=== PATIENT | male | born 1945 | race Caucasian/White ===

== ENCOUNTER 2023-08-07 11:50 | Observation (INO) | payer MEDICAID, OTHER ==
--- OUTSIDE RECORDS SUMMARY | 2023-08-07 11:54 | XMS REPORT | Continuity of Care Document ---
Author Name Unknown Address [address] [facility] [address] [place] [address] [facility] thconnect Address [address] [facility] 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 Role Phone MARY LOPES Attending Clinician Unavailable NICK CHRISTENSEN Attending Clinician UnavailDAVID Tim Attending Clinician Unavailable LAB53 Attending Clinician Unavailable LAB90 Attending Clinician Unavailable CARLOS TERRAZAS Attending Clinician Unavail able JYOTHI DAVIS Attending Clinician Unavailable MARCO SHULTZ Attending Clinician Unavailable MD CHADWICK Attending Clinician Unavailab ASAD Colmenares Attending Clinician Unavailab RACIEL Duff Attending Clinician UnaAwais Mcdonnell Attending Clinician Unavailable Awais Tanner Attending Clinician Unavailable Awais Tanner Admitting Clinician Unavailable Payers Payer Name Policy Type Policy Number Effective Date Expirati on Date Source [facility] 16 [id number] 2022 00:00:00 Problems Condition Name Condition Details Condition Category Status Onset Date Resolution Date Last Treatment Date Treating Clinician Comments Source Morbid obesity Morbid obesity Disease Active 2022-03 0-11 00:00: 00 Марина Kearns - Externa l Poison katharine dermatitis Poison katharine dermatitis Disease Active 4-05 00:00: 00 Марина Kearns - Externa l Primary hypertensi on Primary hypertensi on Disease Active 3- 00:00: 00 Марина Kearns - Externa l Mixed hyperlipid emia Mixed hyperlipid emia Disease Active 05-27 00:00: 00 Марина Cardenasold - Externa l Thrombocyt openia Thrombocyt openia Disease Active 2021-03 00:00: 00 Марина Seybold - Externa l 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 Social History Social Habit Start Date Stop Date Quantity Comments Source Gender identity Colette abilio Cardenasold - External Sexual orientation K emily Seybold - External History SDOH Alcohol Frequency Марина Caballero bold - External History SDOH Alcohol Std Drinks Марина Quinn ybold - External History SDOH Alcohol Binge Марина Kearns - External Alcohol intake 2023-04-08 00:00:00 2023-04-08 00:00:00 .14 /d Марина Kearns - External History of Social function 2022-06-12 00:00:00 2022-06-12 00:00:00 Марина Kearns - External Tobacco use and exposure 2022-02-24 00:00:00 2022-02-24 00:00:00 Smokeless tobacco non-user Марина Kearns - External Alcohol Comment 2022-02-20 00:00:00 2022-02-20 00:00:00 One beer a month. Марина Kearns - External Sex Ass[birth year] At 1945 00:00:00 1945 00:[birth year]:00 Марина Kearns - External Smoking Status Start Date Stop Date Source Never smoked tobacco Марина Kearns - External Medications Ordered Medication Name Filled Medication Name Start Date Stop Date Current Medication? Ordering Clinician Indication Dosage Frequency Signature (SIG) Comments Components Source Ascorbic Acid (Vitamin C) 500 MG oral Capsule 04-08 14:15: 47 Yes Take by mouth Марина noel Potassium Gluconate 550 MG oral Tablet 04-08 14:15: 47 Yes Take by mouth Марина noel Misc Natural Products (DAILY HERBS IMMUNE DEFENSE OR) 04-08 14:15: 47 Yes Take by mouth Марина noel Cholecalcif miriam (PA Vitamin D-3) 125 MCG (5000 UT) oral Capsule 04-08 14:15: 47 Yes Take by mouth Марина noel Benzonatate 200 MG oral Capsule 04-08 00:00: 00 Yes [id number] 200mg Q.[id number] 3D Take 1 capsule (200 mg total) by mouth 3 times daily as needed for cough. Марина noel Albuterol HFA 108 (90 Base) MCG/ACT IN AERS 04-08 00:00: 00 Yes [id number] 2{puff} Q.25D Inhale 2 puffs into the lungs every 6 hours as needed for wheezing or shortness of breath. Марина noel Pseudoeph-B romphen-DM 30-2-10 MG/5ML oral Syrup 04-08 00:00: 00 Yes [id number] 10mL QD Take 10 mL by mouth nightly as needed (cough). Марина noel Amoxicillin -Pot Clavulanate 875-125 MG oral Tablet 04-08 00:00: 00 04-16 05:59 :00 No [id number] 1{tbl} Take 1 tablet by mouth 2 times daily for 7 days. Марина noel Ascorbic Acid (Vitamin C) 500 MG oral Capsule 03-29 09:33: 02 Yes Take by mouth Марина noel Potassium Gluconate 550 MG oral Tablet 03-29 09:33: 02 Yes Take by mouth Марина noel Miswallace Natural Products (DAILY HERBS IMMUNE DEFENSE OR) 03-29 09:33: 02 Yes Take by mouth Марина Cardenasold - Externa l Cholecalcif miriam (PA Vitamin D-3) 125 MCG (5000 UT) oral Capsule 03-29 09:33: 02 Yes Take by mouth Марина Cardenasold - Externa l Ascorbic Acid (Vitamin C) 500 MG oral Capsule 03-18 13:44: 10 Yes Take by mouth Марина Kearns - Externa l Potassium Gluconate 550 MG oral Tablet 03-18 13:44: 10 Yes Take by mouth Марина Kearns - Externa l Misc Natural Products (DAILY HERBS IMMUNE DEFENSE OR) 03-18 13:44: 10 Yes Take by mouth Марина Kearns - Externa l Cholecalcif miriam (PA Vitamin D-3) 125 MCG (5000 UT) oral Capsule 03-18 13:44: 10 Yes Take by mouth Марина Kearns - Externa bert APPLE CIDER VINEGAR OR 03-18 13:39: 40 Yes Take by mouth. Марина Kaerns - Externa bert Ascorbic Acid (Vitamin C) 500 MG oral Capsule 2022-03 13:22: 11 Yes Take by mouth Марина Kearns - Externa bert Potassium Gluconate 550 MG oral Tablet 2022-03 13:22: 11 Yes Take by mouth Марина Kearns - Externa l Misc Natural Products (DAILY HERBS IMMUNE DEFENSE OR) 2022-03 13:22: 11 Yes Take by mouth Марина Kearns - Externa l Cholecalcif miriam (PA Vitamin D-3) 125 MCG (5000 UT) oral Capsule 2022-03 13:22: 11 Yes Take by mouth Марина Cardenasold - Externa l Triamcinolo ne Acetonide (KENALOG) 40 mg/mL 06-10 16:30: 00 06-10 16:30 :00 No [id number] 40mg Марина Cardenasold - Externa l Ascorbic Acid (Vitamin C) 500 MG oral Capsule 06-10 11:04: 32 Yes Take by mouth Марина Cardenasold - Externa l Potassium Gluconate 550 MG oral Tablet 06-10 11:04: 32 Yes Take by mouth Марина noel Mis Natural Products (DAILY HERBS IMMUNE DEFENSE OR) 06-10 11:04: 32 Yes Take by mouth Марина noel Cholecalcif miriam (PA Vitamin D-3) 125 MCG (5000 UT) oral Capsule 06-10 11:04: 32 Yes Take by mouth Марина noel predniSONE (DELTASONE) 10 MG oral tablet 06-10 00:00: 00 Yes [id number] One pill twice daily for 7 days then one pill daily for 7 days Марина noel Poison Katharine Treatments (Zanfel) apply externally [facility] 06-10 00:00: 00 Yes [id number] Apply 1 applicatio n. topically daily Марина noel Cetirizine HCl (ZyrTEC Allergy) 10 MG oral Capsule 06-10 00:00: 00 03-18 00:00 :00 No [id number] 10mg Take 1 capsule (10 mg total) by mouth daily Марина noel Famotidine (Pepcid) 20 MG oral tablet 06-10 00:00: 00 03-18 00:00 :00 No [id number] 20mg Take 1 tablet (20 mg total) by mouth 2 times daily Марина noel Ascorbic Acid (Vitamin C) 500 MG oral Capsule 05-27 08:36: 23 Yes Take by mouth Марина noel Potassium Gluconate 550 MG oral Tablet 05-27 08:36: 23 Yes Take by mouth Марина noel [facility] Natural Products (DAILY HERBS IMMUNE DEFENSE OR) 05-27 08:36: 23 Yes Take by mouth Марина noel Cholecalcif miriam (PA Vitamin D-3) 125 MCG (5000 UT) oral Capsule 05-27 08:36: 23 Yes Take by mouth Марина noel Metformin HCl 500 MG oral Tablet 05-12 00:00: 00 12-16 00:00 :00 No [id number] TAKE 1 TABLET BY MOUTH DAILY WITH BREAKFAST Марина noel Ascorbic Acid (Vitamin C) 500 MG oral Capsule 04-10 09:15: 48 Yes Take by mouth Марина Godoya bert Potassium Gluconate 550 MG oral Tablet 04-10 09:15: 48 Yes Take by mouth Марина Godoya bert Misc Natural Products (DAILY HERBS IMMUNE DEFENSE OR) 04-10 09:15: 48 Yes Take by mouth Марина Godoya bert Cholecalcif miriam (PA Vitamin D-3) 125 MCG (5000 UT) oral Capsule 04-10 09:15: 48 Yes Take by mouth Марина noel Ascorbic Acid (Vitamin C) 500 MG oral Capsule 04-08 15:15: 20 Yes Take by mouth Марина noel Potassium Gluconate 550 MG oral Tablet 04-08 15:15: 20 Yes Take by mouth Марина noel Misc Natural Products (DAILY HERBS IMMUNE DEFENSE OR) 04-08 15:15: 20 Yes Take by mouth Марина noel Cholecalcif miriam (PA Vitamin D-3) 125 MCG (5000 UT) oral Capsule 04-08 15:15: 20 Yes Take by mouth Марниа noel Sod Picosulfate -Mag Ox-Cit Acd (Clenpiq) 10-3.5-12 MG-GM -GM/160ML oral Solution 04-08 00:00: 00 Yes [id number] Instructio ns provided to patient. Follow instructio ns provided by provider. Марина noel hydroCHLORO thiazide 12.5 MG oral Capsule -13 00:00: 00 03-18 00:00 :00 No [id number] 12.5mg Take 1 capsule (12.5 mg total) by mouth daily Марина noel Atorvastati n Calcium 20 MG oral Tablet -08 00:00: 00 12-16 00:00 :00 No [id number] 20mg Take 1 tablet (20 mg total) by mouth daily Марина Kearns - Externa bert Ascorbic Acid (Vitamin C) 500 MG oral Capsule 03-12 13:36: 34 Yes Take by mouth Марина Kearns - Externa l Potassium Gluconate 550 MG oral Tablet 03-12 13:36: 34 Yes Take by mouth Марина Kearns - Externa l Misc Natural Products (DAILY HERBS IMMUNE DEFENSE OR) 03-12 13:36: 34 Yes Take by mouth Марина Kearns - Externa l Cholecalcif miriam (PA Vitamin D-3) 125 MCG (5000 UT) oral Capsule 03-12 13:36: 34 Yes Take by mouth Марина Quinnleonidaslarry - Externa bert Ascorbic Acid (Vitamin C) 500 MG oral Capsule 2021-03 10:10: 50 Yes Take by mouth Марина Kearns - Externa l Potassium Gluconate 550 MG oral Tablet 2021-03 10:10: 50 Yes Take by mouth Марина Quinnleonidaslarry - Externa bert Misc Natural Products (DAILY HERBS IMMUNE DEFENSE OR) 2021-03 10:10: 50 Yes Take by mouth Марина Quinnleonidaslarry - Externa bert Cholecalcif miriam (PA Vitamin D-3) 125 MCG (5000 UT) oral Capsule 2021-03 10:10: 50 Yes Take by mouth Марина Kearns - Externa bert Ascorbic Acid (Vitamin C) 500 MG oral Capsule 2021-03 10:17: 12 Yes Take by mouth Марина Kearns - Externa bert Potassium Gluconate 550 MG oral Tablet 2021-03 10:17: 12 Yes Take by mouth Марина Kearns - Externa bert Misc Natural Products (DAILY HERBS IMMUNE DEFENSE OR) 2021-03 10:17: 12 Yes Take by mouth Марина Quinnleonidaslarry - Externa l Cholecalcif miriam (PA Vitamin D-3) 125 MCG (5000 UT) oral Capsule 2021-03 10:17: 12 Yes Take by mouth Марина Quinnleonidaslarry - Externa l hydroCHLORO thiazide 12.5 MG oral Capsule 2021-03 00:00: 00 Yes [id number] 12.5mg Take 1 capsule (12.5 mg total) by mouth daily Марина noel Metformin HCl 500 MG oral Tablet 2021-03 00:00: 00 Yes [id number] 500mg Take 1 tablet (500 mg total) by mouth daily (with breakfast) Марина noel Atorvastati n Calcium 20 MG oral Tablet 2021-03 00:00: 00 Yes [id number] 20mg Take 1 tablet (20 mg total) by mouth daily Марина noel Potassium Gluconate 550 MG oral Tablet 2021-03 10:34: 17 Yes Take by mouth Марина noel Misc Natural Products (DAILY HERBS IMMUNE DEFENSE OR) 2021-03 10:34: 17 Yes Take by mouth Марина noel Cholecalcif miriam (PA Vitamin D-3) 125 MCG (5000 UT) oral Capsule 2021-03 10:34: 17 Yes Take by mouth Марина noel Ascorbic Acid (Vitamin C) 500 MG oral Capsule 2021-03 10:34: 16 Yes Take by mouth Марина noel Immunizations Ordered Immunization Name Filled Immunization Name Date Status Comments Source Influenza Virus Vaccine, Quadrivalent, High Dose, Age 65 And Up 2022-02-06 00:00:00 Completed Марина Kearns - External Influenza Virus Vaccine, Quadrivalent, High Dose, Age 65 And Up 2022-02-06 00:00:00 Completed Марина Frazier Influenza Virus Vaccine, Quadrivalent, High Dose, Age 65 And Up 2022-02-06 00:00:00 Completed Марина Kearns - External Influenza Virus Vaccine, Quadrivalent, High Dose, Age 65 And Up 2022-02-06 00:00:00 Completed Марина Kearns - External Influenza Virus Vaccine, Quadrivalent, High Dose, Age 65 And Up 2022-02-06 00:00:00 Completed Марина Kearns - External Influenza Virus Vaccine, Quadrivalent, High Dose, Age 65 And Up 2022-02-06 00:00:00 Completed Марина Kearns - External Influenza Virus Vaccine, Quadrivalent, High Dose, Age 65 And Up 2022-02-06 00:00:00 Completed Марина Seybold - External Influenza Virus Vaccine, Quadrivalent, High Dose, Age 65 And Up 2022-02-06 00:00:00 Completed Марина Seybold - External Influenza Virus Vaccine, Quadrivalent, High Dose, Age 65 And Up Unknown Completed Марина Massey eybold - External Influenza Virus Vaccine, Quadrivalent, High Dose, Age 65 And Up Unknown Completed Марина S eybold - External Influenza Virus Vaccine, Quadrivalent, High Dose, Age 65 And Up Unknown Completed Марина S eybold - External Influenza Virus Vaccine, Quadrivalent, High Dose, Age 65 And Up Unknown Completed Марина S eybold - External Vital Signs Vital Name Observation Time Observation Value Comments S ource Systolic blood pressure 2023-04-08 20:13:00 128 mm[Hg] Марина Seybo ld - External Diastolic blood pressure 2023-04-08 20:13:00 80 mm[Hg] Марина Seybo ld - External Heart rate 2023-04-08 20:13:00 84 /min Kelse y Seybold - External Body temperature 2023-04-08 20:13:00 36.67 Eva Марина Seybold - External Respiratory rate 2023-04-08 20:13:00 15 /min Марина Seybold - External Body weight 2023-04-08 20:13:00 111.131 kg Colette ey Seybold - External BMI 2023-04-08 20:13:00 36.18 kg/m2 Colette ey Seybold - External Systolic blood pressure 2023-03-29 15:35:00 159 mm[Hg] Марина Seybo ld - External Diastolic blood pressure 2023-03-29 15:35:00 93 mm[Hg] Марина Seybo ld - External Heart rate 2023-03-29 15:35:00 74 /min Kelse y Seybold - External Body temperature 2023-03-29 15:35:00 36.44 Eva Марина Seybold - External Respiratory rate 2023-03-29 15:35:00 16 /min Марина Seybold - External Body height 2023-03-29 15:35:00 175.3 cm Colette ey Seybold - External Body weight 2023-03-29 15:35:00 110.859 kg Colette ey Seybold - External BMI 2023-03-29 15:35:00 36.09 kg/m2 Colette ey Seybold - External Oxygen saturation in Arterial blood by Pulse oximetry 2023-03-29 15:35:00 97 /min Марина Seybo ld - External Systolic blood pressure 2023-03-18 19:39:00 136 mm[Hg] Марина Seybo ld - External Diastolic blood pressure 2023-03-18 19:39:00 80 mm[Hg] Марина Seybo ld - External Heart rate 2023-03-18 19:39:00 76 /min Kelse y Seybold - External Body temperature 2023-03-18 19:39:00 36.44 Eva Марина Seybold - External Respiratory rate 2023-03-18 19:39:00 14 /min Марина Seybold - External Body height 2023-03-18 19:39:00 175.3 cm Colette ey Seybold - External Body weight 2023-03-18 19:39:00 110.678 kg Colette ey Seybold - External BMI 2023-03-18 19:39:00 36.03 kg/m2 Colette ey Seybold - External Systolic blood pressure 2022-12-16 18:15:00 130 mm[Hg] Марина Seybo ld - External Diastolic blood pressure 2022-12-16 18:15:00 80 mm[Hg] Марина Seybo ld - External Heart rate 2022-12-16 18:15:00 76 /min Kelse y Seybold - External Body temperature 2022-12-16 18:15:00 36.06 Eva Марина Seybold - External Respiratory rate 2022-12-16 18:15:00 15 /min Марина Seybold - External Body height 2022-12-16 18:15:00 175.3 cm Colette ey Seybold - External Body weight 2022-12-16 18:15:00 109.317 kg Colette ey Seybold - External BMI 2022-12-16 18:15:00 35.59 kg/m2 Colette ey Seybold - External Systolic blood pressure 2022-06-10 16:02:00 165 mm[Hg] Марина Seybo ld - External Diastolic blood pressure 2022-06-10 16:02:00 73 mm[Hg] Марина Seybo ld - External Heart rate 2022-06-10 16:02:00 81 /min Kelse y Seybold - External Body temperature 2022-06-10 16:02:00 37 Eva Марина Seybold - External Respiratory rate 2022-06-10 16:02:00 14 /min Марина Seybold - External Body height 2022-06-10 16:02:00 175.3 cm Colette ey Seybold - External Body weight 2022-06-10 16:02:00 107.502 kg Colette ey Seybold - External BMI 2022-06-10 16:02:00 35.00 kg/m2 Colette ey Seybold - External Oxygen saturation in Arterial blood by Pulse oximetry 2022-06-10 16:02:00 96 /min Марина Seybo ld - External Systolic blood pressure 2022-05-27 13:34:00 130 mm[Hg] Марина Seybo ld - External Diastolic blood pressure 2022-05-27 13:34:00 68 mm[Hg] Марина Seybo ld - External Heart rate 2022-05-27 13:34:00 81 /min Juliose y Seybold - External Body temperature 2022-05-27 13:34:00 36.67 Eva Марина Seybold - External Respiratory rate 2022-05-27 13:34:00 15 /min Марина Seybold - External Body height 2022-05-27 13:34:00 175.3 cm Colette ey Seybold - External Body weight 2022-05-27 13:34:00 107.049 kg Colette ey Seybold - External BMI 2022-05-27 13:34:00 34.85 kg/m2 Colette ey Seybold - External Systolic blood pressure 2022-04-10 15:15:00 167 mm[Hg] Марина Seybo ld - External Diastolic blood pressure 2022-04-10 15:15:00 76 mm[Hg] Марина Seybo ld - External Heart rate 2022-04-10 15:15:00 86 /min Kelse y Seybold - External Body temperature 2022-04-10 15:15:00 36.89 Eva Марина Seybold - External Respiratory rate 2022-04-10 15:15:00 16 /min Марина Seybold - External Body height 2022-04-10 15:15:00 175.3 cm Colette ey Seybold - External Body weight 2022-04-10 15:15:00 108.41 kg Colette ey Seybold - External BMI 2022-04-10 15:15:00 35.29 kg/m2 Colette ey Seybold - External Oxygen saturation in Arterial blood by Pulse oximetry 2022-04-10 15:15:00 96 /min Марина Seybo ld - External Systolic blood pressure 2022-04-08 21:14:00 154 mm[Hg] Марина Seybo ld - External Diastolic blood pressure 2022-04-08 21:14:00 81 mm[Hg] Марина Seybo ld - External Heart rate 2022-04-08 21:14:00 94 /min Kelse y Seybold - External Body temperature 2022-04-08 21:14:00 36.67 Eva Марина Seybold - External Respiratory rate 2022-04-08 21:14:00 16 /min Марина Seybold - External Body height 2022-04-08 21:14:00 175.3 cm Colette ey Seybold - External Body weight 2022-04-08 21:14:00 110.224 kg Colette ey Seybold - External BMI 2022-04-08 21:14:00 35.88 kg/m2 Colette ey Seybold - External Systolic blood pressure 2022-03-12 19:40:00 137 mm[Hg] Марина Seybo ld - External Diastolic blood pressure 2022-03-12 19:40:00 72 mm[Hg] Марина Seybo ld - External Heart rate 2022-03-12 19:40:00 81 /min Kelse y Seybold - External BMI 2022-03-12 19:39:00 36.74 kg/m2 Colette ey Seybold - External Oxygen saturation in Arterial blood by Pulse oximetry 2022-03-12 19:39:00 96 /min Марина Seybo ld - External Body temperature 2022-03-12 19:39:00 36.72 Eva Марина Seybold - External Respiratory rate 2022-03-12 19:39:00 16 /min Марина Seybold - External Body height 2022-03-12 19:39:00 172.7 cm Colette ey Seybold - External Body weight 2022-03-12 19:39:00 109.589 kg Colette ey Seybold - External Systolic blood pressure 2022-02-20 16:09:00 154 mm[Hg] Марина Seybo ld - External Diastolic blood pressure 2022-02-20 16:09:00 74 mm[Hg] Марина Seybo ld - External Heart rate 2022-02-20 16:09:00 99 /min Kelse y Seybold - External Body temperature 2022-02-20 16:09:00 36.28 Eva Марина Seybold - External Respiratory rate 2022-02-20 16:09:00 16 /min Марина Seybold - External Body height 2022-02-20 16:09:00 172.7 cm Colette ey Seybold - External Body weight 2022-02-20 16:09:00 109.77 kg Colette ey Seybold - External BMI 2022-02-20 16:09:00 36.80 kg/m2 Colette ey Seybold - External Systolic blood pressure 2022-02-06 16:27:00 162 mm[Hg] Марина Seybo ld - External Diastolic blood pressure 2022-02-06 16:27:00 68 mm[Hg] Марина Seybo ld - External Heart rate 2022-02-06 16:27:00 89 /min Kelse y Seybold - External Body temperature 2022-02-06 16:27:00 36.78 Eva Марина Seybold - External Respiratory rate 2022-02-06 16:27:00 16 /min Марина Seybold - External Body height 2022-02-06 16:27:00 172.7 cm Colette ey Seybold - External Body weight 2022-02-06 16:27:00 110.678 kg Colette ey Seybold - External BMI 2022-02-06 16:27:00 37.10 kg/m2 Colette ey Seybold - External Height/Length Measured 2021-03-25 09:37:25 175.26 cm Weight Dosing 2021-03-25 09:37:25 97.06 kg Procedures Procedure Date / Time Performed Performing Clinicia n Source [facility] 19:03:00 Mary Lopes - External [facility] 2022-02-06 17:42:12 Mary Lopes eybold - External Encounters Start Date/Time End Date/Time Encounter Type Admission Type Attending [facility] Care Department Encounter ID Source 2023-09-16 08:30:00 2023-09-16 08:30:00 Outpatient MARY LOPES [id number] Марина miles 2023-04-12 00:00:00 2023-04-12 00:00:00 Outpatient FERMIN NICK DELEON [id number] Марина miles 2023-04-09 11:00:00 2023-04-09 11:00:00 Outpatient DAVID PAZ МАРИНА DELEON [id number] Марина miles 2023-04-08 14:00:00 2023-04-08 14:00:00 Outpatient NICK CHRISTENSEN [id number] Марина miles 2023-03-29 10:20:00 2023-03-29 10:20:00 Outpatient LAB53 МАРИНА DELEON [id number] Марина Kearns 2023-03-29 09:40:00 2023-03-29 09:40:00 Outpatient DAVID PAZ МАРИНА DELEON [id number] Марина miles 2023-03-18 14:45:00 2023-03-18 14:45:00 Outpatient LAB90 МАРИНА DELEON [id number] Марина Kearns 2023-03-18 14:00:00 2023-03-18 14:00:00 Outpatient MARY LOPES [id number] Марина Kearns 2022-12-16 14:45:00 2022-12-16 14:45:00 Outpatient LAB90 МАРИНА DELEON [id number] Марина Kearns 2022-12-16 13:30:00 2022-12-16 13:30:00 Outpatient MARY LOPES [id number] Марина Kearns 2022-12-03 00:00:00 2022-12-03 00:00:00 Outpatient CARLOS TERRAZAS [facility] [id number] [facility] 00:00:00 2022-09-14 00:00:00 Outpatient JYOTHI DAVIS МАРИНА DELEON [id number] Марина Seybold 2022-08-08 00:00:00 2022-08-08 00:00:00 Outpatient JYOTHI DAVIS [facility]А DELE[facility] [id number] [facility]22-06-10 11:15:00 2022-06-10 11:15:00 Outpatient PREJYOTHI GAMEZ МАРИНА DELEON [id number] [facility] 2022-06-05 00:00:00 2022-06-05 00:00:00 Outpatient MARCO SHULTZ [facility]ИНА DELEON [id number] [facility] 2022-06-03 11:00:00 2022-06-03 11:00:00 Outpatient MARCO SHULTZ [facility]А [facility]LE[facility] [id number] [facility] 2022-05-27 09:15:00 2022-05-27 09:15:00 Outpatient LAB90 МАРИНА DELEON [id number] Марина Seybold 2022-05-27 08:30:00 2022-05-27 08:30:00 Outpatient SANDIE MARY DELEON [id number] Марина Seybold 2022-05-22 00:00:00 2022-05-22 00:00:00 Outpatient MARY LOPES [id number] Марина Seybold 2022-05-12 00:00:00 2022-05-12 00:00:00 Outpatient MARY LOPES [id number] Марина Seybold 2022-04-28 00:00:00 2022-04-28 00:00:00 Outpatient MARY LOPES [id number] Марина Seybold 2022-04-28 00:00:00 2022-04-28 00:00:00 Outpatient MARY LOPES [id number] Марина Seybold 2022-04-10 09:20:00 2022-04-10 09:20:00 Outpatient DAVID PAZ МАРИНА DELEON [id number] Марина Seyblarry 2022-04-09 00:00:00 2022-04-09 00:00:00 Outpatient MD МАРИНА VILA [id number] Марина Seyblarry 2022-04-08 15:30:00 2022-04-08 15:30:00 Outpatient MARCO SHULTZ [id number] Марина Seybold 2022-03-20 08:30:00 2022-03-20 08:30:00 Outpatient MARY LOPES [id number] Марина Seybold 2022-03-18 08:30:00 2022-03-18 08:30:00 Outpatient МАРИНА DELEON [id number] Марина Seybold 2022-03-13 00:00:00 2022-03-13 00:00:00 Outpatient MARY LOPES [id number] Марина Seybold 2022-03-12 14:55:00 2022-03-12 14:55:00 Outpatient LAB53 МАРИНА DELEON [id number] Марина Seybold 2022-03-12 14:00:00 2022-03-12 14:00:00 Outpatient DAVID PAZ МАРИНА DELEON [id number] Марина Seybold 2022-02-27 11:00:00 2022-02-27 11:00:00 Outpatient ASAD PAL [id number] Марина Seybold 2022-02-25 00:00:00 2022-02-25 00:00:00 Outpatient MARY LOPES [id number] Марина Seybold 2022-02-24 10:15:00 2022-02-24 10:15:00 Outpatient RACIEL GRAMAJO [id number] Марина Seybold 2022-02-20 10:30:00 2022-02-20 10:30:00 Outpatient MARY LOPES [id number] Марина Seybold 2022-02-16 10:20:00 2022-02-16 10:20:00 Outpatient LAB90 МАРИНА DELEON [id number] Марина [place] 2022-02-09 00:00:00 2022-02-09 00:00:00 Outpatient MARY LOPES [id number] Марина [place] 2022-02-06 11:50:00 2022-02-06 11:50:00 Outpatient LAB90 [facility] DELE[facility] [id number] [facility]:30:00 2022-02-06 10:30:00 Outpatient MARY LOPES МАРИНА [id number] Марина [place] 2022-02-06 09:15:00 2022-02-06 09:15:00 Outpatient HARISJYOTHI GAMEZ МАРИНА [id number] Маринаjesenia [place] 2018-07-05 13:45:00 2018-07-05 18:35:00 Outpatient 3 Awais Tanner Ciro, [facility] [facility] [id number] [facility] Results Test Description Test Time Test Comments Results Result Co mments Source Марина Kearns - External Notes Date/Time Note Provider Source 2023-04-08 14:14:45 [id number]:14:45F ormatting of this note is different from the original.Chief ComplaintPatient presents withCoughSinus drainage, losing his voice, chest congested. Started [place] [id number] FsfsAP6175-75-03Y50:16:37Nurse [id number]. [id number] for patient [id number] NoteLNNARRATIVEFormatted C-CDA narrative NestorUrmila Dcyppn0032 [facility]als of [id number] [id number]:16:371.2.840.936770.1.7 2.3.15|1.2.840.364486.1.13.131.2.7.2. [id number] [facility] 2023-03-29 09:33:21 2611-09-33F52:33:21F ormatting of this note is different from the original.Chief ComplaintPatient presents withHematology Follow-upThrombocytopenia ([facility])Azra Russ [id number] JlbuYI1651-96-91Z71:11:56Nurse [id number]. [id number] for patient rcxd89544-0Pcbbr NoteLNNARRATIVEFormatted C-CDA narrative text[address][id number]:11:561.2.840.134799.1.7 2.3.15|1.2.840.270190.1.13.131.2.7.2. [id number] [facility] 2023-03-18 13:46:08 [id number]:46:08F ormatting of this note is different from the original.Chief ComplaintPatient presents withDiabetesFollow up [place] [id number] KdlbZY3317-95-69S89:48:03Nurse [id number]. [id number]|[id number] for patient qisg95820-0Sttgb NoteLNNARRATIVEFormatted C-CDA narrative textWestern [facility] Health[address] [place], [place] [id number] 1983-77-71R42:48:031.2.840.388701.1.7 2.3.15|1.2.840.785528.1.13.131.2.7.2. [id number] [facility]"
[2023-08-07 12:38] LABS: Absolute Basophils 0.1 K/uL (0-0.5); Absolute Lymphocytes (CBC) 1.3 K/uL (0.7-4.9); Absolute Monocytes 1.2 K/uL (0.1-1.3); Absolute Neutrophil 11.3 K/uL (1.8-8.0); Basophils % 0.4 % (0-1.3); Eosinophils % 0.2 % (0-4.4); Hematocrit 47.2 % (39.6-49.0); Hemoglobin 15.7 g/dL (13.6-17.9); Lymphocytes % 9.4 % (15.3-44.8); MCH 30.3 pg (27.0-35.0); MCHC 33.2 g/dL (32.0-36.0); MCV 91.3 fL (80-100); MPV 9.5 fL (7.6-11.3); Monocytes % 8.6 % (3.3-12.3); Neutrophils % 81.4 % (41.7-73.7); RBC Red Blood Cell Count 5.17 M/uL (4.33-5.43); Red Cell Distribution Width 14.7 % (12.1-15.2)
[2023-08-07 13:11] LABS: PT Prothrombin Time 12.4 SECONDS (9.5-12.5); Protime INR 1.13
[2023-08-07 13:14] LABS: Platelets 199 thou/uL (152-406)
[2023-08-07 13:23] LABS: Albumin 3.5 g/dL (3.4-5.0); Albumin/Globulin Ratio 0.9 (1.1-1.8); Anion Gap 7.1 mEq/L (5.0-15.0); Bilirubin Direct 0.2 mg/dL (0-0.2); Bilirubin Indirect, Calculated 0.7 mg/dL (0.2-0.8); Bilirubin Total 0.9 mg/dL (0.2-1.0); Magnesium 2.2 mg/dL (1.6-2.4); Potassium 4.1 mEq/L (3.5-5.1); Protein, Total 7.5 g/dL (6.4-8.2); Troponin High Sensitivity 3.7 pg/mL (<58.9)
--- NOTE | 2023-08-07 13:29 | RAD REPORT ---
EXAM DESCRIPTION: RAD - Chest Single View - 08/07/2023 1:08 pm CLINICAL HISTORY: CHEST PAIN COMPARISON: Chest Pa And Lat (2 Views) dated 05/26/2017; Chest Pa And Lat (2 Views) dated 06/14/2015 FINDINGS: Lines: None. Lungs: No evidence of edema or pneumonia. Pleural: No significant pleural effusions or pneumothorax. Cardiac: The heart size is within normal limits. Mediastinum: Within normal limits. Bones: No acute fractures. Remote right-sided rib fractures . ACDF in the cervical spine. Other: None IMPRESSION: No acute cardiopulmonary disease.
--- NOTE | 2023-08-07 14:00 | RAD REPORT ---
EXAM DESCRIPTION: CTAngio Aorta For Dissection - 08/07/2023 1:39 pm CLINICAL HISTORY: DISSECTION COMPARISON: Chest Single View dated 08/07/2023 TECHNIQUE: CTA of the chest, abdomen, and pelvis was performed with IV contrast. All CT scans are performed using dose optimization technique as appropriate and may include automated exposure control or mA/KV adjustment according to patient size. FINDINGS: Thorax: Chest Wall: No abnormal mass Lungs: 3 mm right upper lobe pulmonary nodule on image 43, series 501. Mild paraseptal emphysema. Dep endent atelectasis. Other small sub 4 mm nodules noted. Pleura: No effusions or pneumothorax. Shyla/Mediastinum: Diffusely thickened esophagus likely reflecting esophagitis. Aorta/Pulmonary Arteries: Unremarkable Heart: Normal size. Coronary calcifications. Abdomen/Pelvis: Liver: Hepatic steatosis. Several subcentimeter liver lesions are noted which are too small to charac terize. Biliary: Cholecystectomy. Stomach: No significant focal abnormality. Duodenum: No significant focal abnormality. Pancreas: No significant abnormality. Spleen: No significant abnormality. Adrenal: No suspicious lesions. Kidney/ureter: No hydronephrosis. No renal calculi. Retroperitoneum: No retroperitoneal adenopathy. Vascular: No aneurysm. Atherosclerosis. Bowel: Diverticulosis without diverticulitis .. Peritoneum: No ascites or free air. Fat containing inguinal hernias. Bladder: Grossly unremarkable. Reproductive: No adnexal masses. Bones: No acute fracture. Multilevel degenerative changes are present in the spine. ACDF in the cervi katie spine . Other: n/a IMPRESSION: No aortic aneurysm, aortic dissection, or pulmonary embolus. Diffusely thickened esophagus could be secondary to esophagitis. Small sub 4 mm pulmonary nodules. Consider 12 month follow-up chest CT.
[2023-08-07 14:21] LABS: Specific Gravity 1.022 (1.005-1.030); Sqamous Epithelial None Seen /HPF (None Seen); Urine Bacteria None Seen /HPF (<20); Urine Bilirubin NEGATIVE (Negative); Urine Blood Negative (Negative); Urine Clarity Clear (Clear); Urine Color Light-Yellow (Yellow); Urine Culture Reflex Order NOT NEEDED; Urine Glucose NEGATIVE (Negative); Urine Ketones NEGATIVE (Negative); Urine Microscopic Reflex YN ORDER UMIC; Urine Mucus Slight /HPF (None Seen); Urine Nitrite NEGATIVE (Negative); Urine Protein NEGATIVE (Negative); Urine RBC <5 /HPF (None Seen); Urine Urobilinogen Normal (Normal); Urine WBC <5 /HPF (<5); Urine pH 7.5 (5.0-7.0)
--- NOTE | 2023-08-07 14:28 | ER ---
Nurse's Notes [facility] Name: Tyrese Maddox Age: 78 yrs Sex: Male : 1945 Arrival Date: 08/07/2023 Time: 11:50 Bed 4 Private MD: Diagnosis: Chest pain, unspecified;Essential (primary) hypertension;Gastro-esophageal reflux disease with esophagitis;Abnormal findings on diagnostic imaging of other specified body structures-small subpleuralnodules Presentation: 08/06 12:03 Chief complaint: Patient states: Mid chest pain that radiates into neck and back ll1 started throughout the night. Hurts more to take a deep breathe. Coronavirus screen: Client denies travel out of the [place] in the last 14 days. At this time, the client does not indicate any symptoms associated with coronavirus-19. Ebola Screen: Patient denies travel to an Ebola-affected area in the 21 days before illness onset. Acute neurological deficit: none identified. Initial Sepsis Screen: Does the patient meet any 2 criteria? No. Patient's initial sepsis screen is negative. Does the patient have a suspected source of infection? No. Patient's initial sepsis screen is negative. Risk Assessment: Do you want to hurt yourself or someone else? Patient reports no desire to harm self or others. Onset of symptoms was August 06, 2023. 12:03 Method Of Arrival: Ambulatory ll1 12:03 Acuity: MAMI 2 ll1 Triage Assessment: 12:05 General: Appears uncomfortable, Behavior is calm, cooperative, appropriate for age. ll1 Pain: Complains of pain in mid upper chest Pain radiates to back and neck Pain currently is 5 out of 10 on a pain scale. Cardiovascular: Reports chest pain. Respiratory: Reports pain with respiration. Historical: - Allergies: 11:57 Codeine; ll1 - PMHx: 11:57 Arthritis; ll1 - Immunization history:: Adult Immunizations up to date. - Infectious Disease History:: Denies. - Social history:: Smoking status: Patient/guardian denies using tobacco, the patient reports quitting approximately 45 years ago. - Family history:: not pertinent. Screenin:00 [facility] ED Fall Risk Assessment (Adult) History of falling in the last 3 months, bp including since admission No falls in past 3 months (0 pts). Abuse screen: Denies threats or abuse. Denies injuries from another. Nutritional screening: No deficits noted. Tuberculosis screening: No symptoms or risk factors identified. Assessment: 12:00 General: Appears in no apparent distress. Behavior is appropriate for age. Pain: bp Complains of pain in neck and back. Neuro: Level of Consciousness is awake, alert, obeys commands, Oriented to Appropriate for age Manager Of Pmo are equal bilaterally Gait is steady. Cardiovascular: Rhythm is sinus rhythm. Respiratory: No deficits noted. GI: No signs and/or symptoms were reported involving the gastrointestinal system. : No signs and/or symptoms were reported regarding the genitourinary system. EENT: No deficits noted. 14:06 Reassessment: PT RETURNED FROM CT. bp Vital Signs: 12:00 BP 129 / 77; Pulse 103; Resp 17; Pulse Ox 97% ; bp 12:03 BP 162 / 77; Pulse 116; Resp 18; Temp 98.7; Weight 106.59 kg; Height 5 ft. 8 in. ; Pain ll1 5/10; 13:58 BP 142 / 77; Pulse 102; Resp 16; Pulse Ox 97% ; bp 16:17 BP 138 / 90; Pulse 96; Resp 18; Temp 97.2; Pulse Ox 96% on R/A; ll1 12:03 Body Mass Index 35.73 (106.59 kg, 172.72 cm) ll1 12:03 Pain Scale: Adult ll1 ED Course: 11:55 Patient arrived in ED. ra3 11:57 Arm band placed on Patient placed in an exam room, on a stretcher. ll1 11:59 Anthony Perry, RN is Primary Nurse. bp 12:00 Patient has correct armband on for positive identification. Bed in low position. Call bp light in reach. 12:04 Aleksandar Maddox MD is Attending Physician. sheryl 12:05 Triage completed. ll1 12:29 Inserted saline lock: 20 gauge in left forearm, using aseptic technique. Blood bp collected. 12:36 EKG done, by ED staff, reviewed by Aleksandar Maddox MD. em1 13:10 XRAY Chest (1 view) In Process Unspecified. EDMS 13:41 CT Aorta for Dissection In Process Unspecified. EDMS 14:26 Feroz Heaton MD is Hospitalizing Provider. sheryl 14:29 Barbie Zuniga MD is Hospitalizing Provider. sheryl 16:05 Troponin HS: now Sent. ph Administered Medications: 12:30 Drug: NS 0.9% IV 1000 ml IV at 125 ml/hr continuous Route: IV; Rate: 125 ml/hr; Site: bp left forearm; 12:30 Drug: NS 0.9% IV 500 ml IV at bolus once Route: IV; Rate: bolus; Site: left forearm; bp 14:30 Drug: Pantoprazole IVP 80 mg IVP once Route: IVP; Site: left forearm; bp 16:54 Follow up: Response: No adverse reaction bp 14:30 Drug: GI Cocktail without - (Maalox PO 30 ml, Lidocaine Mucous Membrane 2 % 15 bp ml) PO once Route: PO; 16:54 Follow up: Response: No adverse reaction bp 14:30 Drug: Lisinopril PO 10 mg PO once Route: PO; bp 16:54 Follow up: Response: No adverse reaction bp 14:30 Drug: Metoprolol PO 50 mg PO once Route: PO; bp 16:53 Follow up: Response: No adverse reaction bp 14:30 Drug: Aspirin PO Chewable Tablet 324 mg PO once; 81 mg tablets x 4 Route: PO; bp 16:53 Follow up: Response: No adverse reaction bp 14:30 Drug: Enoxaparin Sub-Q 1 mg/kg Sub-Q once Route: Sub-Q; Site: abdomen; bp 16:53 Follow up: Response: No adverse reaction bp Medication: 12:00 VIS not applicable for this client. bp Outcome: 14:27 Decision to Hospitalize by Provider. sheryl 16:54 Patient left the ED. cm10 Signatures: Dispatcher [employer] EDNH Aleksandar Maddox MD MD cha Martinez, Eric 1 Melissa Wheeler, RN RN ph Anthony Perry, RN Fortino Carroll RN RN 1 Margie Gregory RN RN Frida Blevins
--- NOTE | 2023-08-07 14:28 | EDPHYS ---
Physician Documentation [facility] Name: Tyrese Maddox Age: 78 yrs Sex: Male : 1945 Arrival Date: 08/07/2023 Time: 11:50 Bed 4 Private MD: Aleksandar Elizondo HPI: 08/06 14:11 This 78 yrs old Male presents to ER via Ambulatory with complaints of Neck sheryl Problem, Back Pain, Shortness Of Breath. 14:11 The patient or guardian complains of pain. The symptoms are located on the back. Onset: sheryl The symptoms/episode began/occurred this morning, today. Context: The problem was sustained at home. Associated signs and symptoms: Pertinent positives: weakness. The pain radiates to the left subscapular area and right subscapular area. Modifying factors: The symptoms are alleviated by nothing. the symptoms are aggravated by nothing. Severity of symptoms: At their worst the symptoms were moderate, in the emergency department the symptoms are unchanged. The patient has not experienced similar symptoms in the past. Historical: - Allergies: 11:57 Codeine; ll1 - PMHx: 11:57 Arthritis; ll1 - Immunization history:: Adult Immunizations up to date. - Infectious Disease History:: Denies. - Social history:: Smoking status: Patient/guardian denies using tobacco, the patient reports quitting approximately 45 years ago. - Family history:: not pertinent. ROS: 14:11 Constitutional: Negative for fever, chills, and weight loss, Eyes: Negative for injury, sheryl pain, redness, and discharge, ENT: Negative for injury, pain, and discharge, Neck: Negative for injury, pain, and swelling, Respiratory: Negative for shortness of breath, cough, wheezing, and pleuritic chest pain, Abdomen/GI: Negative for abdominal pain, nausea, vomiting, diarrhea, and constipation, Back: Negative for injury and pain, : Negative for injury, bleeding, discharge, and swelling, MS/Extremity: Negative for injury and deformity, Skin: Negative for injury, rash, and discoloration, Neuro: Negative for headache, weakness, numbness, tingling, and seizure, Psych: Negative for depression, anxiety, suicide ideation, homicidal ideation, and hallucinations, Allergy/Immunology: Negative for hives, rash, and allergies, Endocrine: Negative for neck swelling, polydipsia, polyuria, polyphagia, and marked weight changes, Hematologic/Lymphatic: Negative for swollen nodes, abnormal bleeding, and unusual bruising, 14:11 Cardiovascular: Positive for chest pain, of the chest, Exam: 14:11 Constitutional: This is a well developed, well nourished patient who is awake, alert, sheryl and in no acute distress. Head/Face: Normocephalic, atraumatic. Eyes: Pupils equal round and reactive to light, extra-ocular motions intact. Lids and lashes normal. Conjunctiva and sclera are non-icteric and not injected. Cornea within normal limits. Periorbital areas with no swelling, redness, or edema. ENT: Nares patent. No nasal discharge, no septal abnormalities noted. Tympanic membranes are normal and external auditory canals are clear. Oropharynx with no redness, swelling, or masses, exudates, or evidence of obstruction, uvula midline. Mucous membranes moist. Neck: Trachea midline, no thyromegaly or masses palpated, and no cervical lymphadenopathy. Supple, full range of motion without nuchal rigidity, or vertebral point tenderness. No Meningismus. Chest/axilla: Normal chest wall appearance and motion. Nontender with no deformity. No lesions are appreciated. Cardiovascular: Regular rate and rhythm with a normal S1 and S2. No gallops, murmurs, or rubs. Normal PMI, no JVD. No pulse deficits. Respiratory: Lungs have equal breath sounds bilaterally, clear to auscultation and percussion. No rales, rhonchi or wheezes noted. No increased work of breathing, no retractions or nasal flaring. Abdomen/GI: Soft, non-tender, with normal bowel sounds. No distension or tympany. No guarding or rebound. No evidence of tenderness throughout. Back: No spinal tenderness. No costovertebral tenderness. Full range of motion. Male : Normal genitalia with no discharge or lesions. Skin: Warm, dry with normal turgor. Normal color with no rashes, no lesions, and no evidence of cellulitis. MS/ Extremity: Pulses equal, no cyanosis. Neurovascular intact. Full, normal range of motion. Neuro: Awake and alert, GCS 15, oriented to person, place, time, and situation. Cranial nerves II-XII grossly intact. Motor strength 5/5 in all extremities. Sensory grossly intact. Cerebellar exam normal. Normal gait. Psych: Awake, alert, with orientation to person, place and time. Behavior, mood, and affect are within normal limits. 14:11 ECG was reviewed by the Attending Physician. Vital Signs: 12:00 BP 129 / 77; Pulse 103; Resp 17; Pulse Ox 97% ; bp 12:03 BP 162 / 77; Pulse 116; Resp 18; Temp 98.7; Weight 106.59 kg; Height 5 ft. 8 in. ; Pain ll1 5/10; 13:58 BP 142 / 77; Pulse 102; Resp 16; Pulse Ox 97% ; bp 16:17 BP 138 / 90; Pulse 96; Resp 18; Temp 97.2; Pulse Ox 96% on R/A; ll1 12:03 Body Mass Index 35.73 (106.59 kg, 172.72 cm) ll1 12:03 Pain Scale: Adult ll1 MDM: 12:04 Patient medically screened. [facility] 14:20 Differential diagnosis: Thoracic Outlet Syndrome. Data reviewed: vital signs, nurses [facility] notes, EMS record, lab test result(s), EKG, radiologic studies, CT scan. Consideration of Admission/Observation Patient was admitted/placed on observation. Escalation of care including admission/observation considered. I considered the following discharge prescriptions or medication management in the emergency department Medications were administered in the Emergency Department. See MAR. Independent interpretation of the following test(s) in the Emergency Department EKG: See my EKG interpretation above. Test considered but Not performed: Ultrasound no 2 d echo. Historians other than the Patient: pt well informed. Care significantly affected by the following chronic conditions: Hypertension, Obesity. Counseling: I had a detailed discussion with the patient and/or guardian regarding the historical points, exam findings, and any diagnostic results supporting the discharge/admit diagnosis, the presence of at least one elevated blood pressure reading (>120/80) during this emergency department visit, radiology results, the need for further work-up and treatment in the hospital. 08/06 12:09 Order name: Basic Metabolic Panel; Complete Time: 13:59 [facility] 08/06 12:09 Order name: CBC with Diff; Complete Time: 13:59 [facility] 08/06 12:09 Order name: LFT's; Complete Time: 13:59 [facility] 08/06 12:09 Order name: Magnesium; Complete Time: 13:59 [facility] 08/06 12:09 Order name: NT PRO-BNP; Complete Time: 13:59 sheryl 08/06 12:09 Order name: PT-INR; Complete Time: 13:59 sheryl 08/06 12:09 Order name: Troponin HS; Complete Time: 13:59 sheryl 08/06 12:09 Order name: Lipase; Complete Time: 13:59 sheryl 08/06 12:09 Order name: Urinalysis w/ reflexes sheryl 08/06 12:42 Order name: CBC Smear Scan EDMS 08/06 14:45 Order name: Urinalysis w/ reflexes EDMS 08/06 14:45 Order name: CBC with Automated Diff EDMS 08/06 14:45 Order name: CBC with Automated Diff EDMS 08/06 14:45 Order name: Comprehensive Metabolic Panel EDMS 08/06 14:45 Order name: Comprehensive Metabolic Panel EDMS 08/06 14:45 Order name: Lipid Profile EDMS 08/06 14:45 Order name: Lipid Profile EDMS 08/06 14:45 Order name: Magnesium EDMS 08/06 14:45 Order name: Magnesium EDMS 08/06 14:45 Order name: NT PRO-BNP EDMS 08/06 14:45 Order name: NT PRO-BNP EDMS 08/06 14:45 Order name: Troponin High Sensitivity EDMS 08/06 14:45 Order name: Troponin High Sensitivity EDMS 08/06 14:45 Order name: Troponin High Sensitivity EDMS 08/06 14:45 Order name: Troponin High Sensitivity EDMS 08/06 14:53 Order name: Troponin HS: now sheryl 08/06 16:31 Order name: Troponin High Sensitivity EDMS 08/06 12:09 Order name: XRAY Chest (1 view); Complete Time: 13:59 sheryl 08/06 12:09 Order name: CT Aorta for Dissection; Complete Time: 14:08 sheryl 08/06 12:09 Order name: EKG; Complete Time: 12:10 sheryl 08/06 14:53 Order name: EKG; Complete Time: 14:54 sheryl 08/06 12:09 Order name: Cardiac monitoring; Complete Time: 12:29 sheryl 08/06 12:09 Order name: EKG - Nurse/Tech; Complete Time: 12:29 sheryl 08/06 12:09 Order name: IV Saline Lock; Complete Time: 12:29 sheryl 08/06 12:09 Order name: Labs collected and sent; Complete Time: 12:29 [facility] 08/06 12:09 Order name: O2 Per Protocol; Complete Time: 12:29 [facility] 08/06 12:09 Order name: O2 Sat Monitoring; Complete Time: 12:29 [facility] 08/06 12:42 Order name: Labs - recollect needed: Everything per lab; Complete Time: 12:55 08/06 14:53 Order name: EKG - Nurse/Tech; Complete Time: 15:31 [facility] EC:11 Rate is 108 beats/min. Rhythm is regular. QRS [place] is Normal. GA interval is normal. sheryl QRS interval is normal. QT interval is normal. No Q waves. T waves are Normal. No ST changes noted. Clinical impression: Sinus tachycardia and No evidence of ischemia. Interpreted by me. Reviewed by me. Administered Medications: 12:30 Drug: NS 0.9% IV 1000 ml IV at 125 ml/hr continuous Route: IV; Rate: 125 ml/hr; Site: bp left forearm; 12:30 Drug: NS 0.9% IV 500 ml IV at bolus once Route: IV; Rate: bolus; Site: left forearm; bp 14:30 Drug: Pantoprazole IVP 80 mg IVP once Route: IVP; Site: left forearm; bp 16:54 Follow up: Response: No adverse reaction bp 14:30 Drug: GI Cocktail without - (Maalox PO 30 ml, Lidocaine Mucous Membrane 2 % 15 bp ml) PO once Route: PO; 16:54 Follow up: Response: No adverse reaction bp 14:30 Drug: Lisinopril PO 10 mg PO once Route: PO; bp 16:54 Follow up: Response: No adverse reaction bp 14:30 Drug: Metoprolol PO 50 mg PO once Route: PO; bp 16:53 Follow up: Response: No adverse reaction bp 14:30 Drug: Aspirin PO Chewable Tablet 324 mg PO once; 81 mg tablets x 4 Route: PO; bp 16:53 Follow up: Response: No adverse reaction bp 14:30 Drug: Enoxaparin Sub-Q 1 mg/kg Sub-Q once Route: Sub-Q; Site: abdomen; bp 16:53 Follow up: Response: No adverse reaction bp Disposition Summary: 08/07/23 14:27 Hospitalization Ordered Notes: Hospitalization Status: Observation sheryl Location: Telemetry/MedSurg (observation) sheryl Condition: Fair sheryl Problem: new sheryl Symptoms: have improved sheryl Bed/Room Type: Standard sheryl Provider: Barbie Zuniga(08/07/23 14:29) sheryl Room Assignment: [facility](08/07/23 15:31) eb Diagnosis - Chest pain, unspecified sheryl - Essential (primary) hypertension sheryl - Gastro-esophageal reflux disease with esophagitis sheryl - Abnormal findings on diagnostic imaging of other specified body structures - small sheryl subpleuralnodules Forms: - Medication Reconciliation Form sheryl - SBAR form sheryl - Leadership Thank You Letter sheryl Signatures: Dispatcher [employer] EDMS Aleksandar Maddox MD MD cha Peltier, Brian, RN RN Dory Bautista Lynsay RN RN ll1 Corrections: (The following items were deleted from the chart) 12:10 12:09 BASIC METABOLIC PANEL+C.LAB.BRZ ordered. EDMS EDMS 12:10 12:09 CBC+H.LAB.BRZ ordered. EDMS EDMS 12:10 12:09 HEPATIC FUNCTION+C.LAB.BRZ ordered. EDMS EDMS 12:10 12:09 MAGNESIUM+C.LAB.BRZ ordered. EDMS EDMS 12:10 12:09 PROBNP+C.LAB.BRZ ordered. EDMS EDMS 12:10 12:09 PROTIME (+INR)+COAG.LAB.BRZ ordered. EDMS EDMS 12:10 12:09 Troponin High Sensitivity+C.LAB.BRZ ordered. EDMS EDMS 12:10 12:09 LIPASE+C.LAB.BRZ ordered. EDMS EDMS 12:10 12:09 Urinalysis+U.LAB.BRZ ordered. EDMS EDMS 14:29 14:27 Florina Feroz sheryl sheryl 15:31 14:27 sheryl eb
--- NOTE | 2023-08-07 14:35 | P.HP ---
Certification for Inpatient Patient admitted to: Observation Practitioner: I am a practitioner with admitting privileges, knowledge of patient current condition, hospital course, and medical plan of care. Services: Services provided to patient in accordance with Admission requirements found in Title 42 Section 412.3 of the Code of Federal Regulations Patient History Date of Service: 08/07/23 Reason for admission: chest pain History of Present Illness: 78 year old male presented with chest pain, shortness of breath that started night. He reports chest pain radiates to his back. reports associated shortness of breath. He denies dizziness, diaphoresis, edema. No reported of CAD, hypertension. He denies taking any medications. No reported use to tobacco. He reports occasional use of beer. Plan to admit for chest pain rule out CT. Allergies codeine Allergy (Unknown, Unverified 08/07/23 14:49) unknown Review of Systems per HPI Physical Examination - Physical Exam General: Alert, In no apparent distress, Oriented x3 HEENT: Atraumatic Neck: Supple, 2+ carotid pulse no bruit Respiratory: Clear to auscultation bilaterally, Normal air movement Cardiovascular: Normal pulses, Regular rate/rhythm Capillary refill: <2 Seconds Gastrointestinal: Normal bowel sounds, Soft and benign Musculoskeletal: No clubbing, No swelling Neurological: Normal speech, Normal strength at 5/5 x4 extr - Studies Laboratory Data (last 24 hrs) 08/07/23 08/07/23 08/07/23 12:55 12:55 12:28 WBC 13.90 H Hgb 15.7 Hct 47.2 Plt Count 199 PT 12.4 INR 1.13 Sodium 134 L Potassium 4.1 BUN 19 H Creatinine 1.10 Glucose 129 H Magnesium 2.2 Total Bilirubin 0.9 AST 16 ALT 25 Alkaline Phosphatase 84 Lipase 40 Assessment and Plan - Plan Assessment plan Chest pain rule out CT Trend troponins, telemetry CT of the abdomen rule out dissection No aortic aneurysm, aortic dissection, or pulmonary embolus.Diffusely thickened esophagus could be secondary to esophagitis.Small sub 4 mm pulmonary nodules. Consider 12 month follow-up chest CT. Lipid panel Aspirin, beta-adonay, antilipid, EKG Rate is 108 beats/min. Rhythm is regular. QRS [place] is Normal. MA interval is normal. QRS interval is normal. QT interval is normal. No Q waves. T waves are Normal. No ST changes noted. Clinical impression: Sinus tachycardia and No evidence of ischemia. VS 142 / 77; Pulse 102; Resp 16; Pulse Ox 97% ; Esophagitis Inguinal hernia noted on CT PPI Degenerative disc disease As needed analgesic Pulmonary nodule Follow-up with pulmonary after discharge Fatty liver CT of the abdomen Hepatic steatosis. Several subcentimeter liver lesions are noted which are too small to characterize. Follow-up with GI for fatty liver outpatient Diet n.p.o. after midnight Full code DVT SCDs Disposition pending hospital stay Discharge Plan: Home - Advance Directives Does patient have a Living Will: No Does patient have a Durable POA for Healthcare: No - Code Status/Comfort Care Code Status: Full Code Critical Care: No Time Spent Managing Pts Care (In Minutes): 55
[2023-08-07] MEDS ORDERED: MAGNES/ALUMIN/SIMET 30ML UCUP ONE (14:38)
[2023-08-07] MEDS ORDERED: ENOXAPARIN 100 MG/ML SYR SQ ONE (14:38)
[2023-08-07] MEDS ORDERED: METOPROLOL TAR 50 MG TAB ONE (14:39)
[2023-08-07] MEDS ORDERED: PANTOPRAZOLE 40 MG INJ ONE (14:39)
[2023-08-07] MEDS ORDERED: LIDOCAINE VISCOUS 2% 10ML ORAL SOLN ONE (14:40)
[2023-08-07] MEDS ORDERED: ASPIRIN 81 MG CHEWABLE TABLET ONE (14:40)
[2023-08-07] MEDS ORDERED: lisinopriL 10 MG TAB ONE (14:40)
[2023-08-07] MEDS ORDERED: ONDANSETRON 4 MG/2 ML VIAL IV PRN (14:41)
[2023-08-07] MEDS ORDERED: MORPHINE 2 MG/ML SYR IV PRN (14:41)
[2023-08-07] MEDS ORDERED: ACETAMINOPHEN 500 MG TAB PO PRN (14:41)
[2023-08-07] MEDS ORDERED: ZOLPIDEM TARTRATE 5 MG TABLET PO PRN (14:41)
[2023-08-07] MEDS ORDERED: NITROGLYCERIN 0.4 MG/TAB SL PRN (14:46)
[2023-08-07] MEDS: METOPROLOL TAR 25 MG TAB PO SCH (15:00)
[2023-08-07] MEDS ORDERED: SODIUM CHLORIDE 0.9% 10ML INJ IV PRN (17:05)
[2023-08-07 17:34] VITALS: BMI 34.7
[2023-08-07] MEDS: ATORVASTATIN 40 MG TAB PO SCH (20:52)
[2023-08-07] MEDS: PANTOPRAZOLE 40 MG INJ IVP SCH (20:52)
[2023-08-07] MEDS: ACETAMINOPHEN 325 MG TABLET PO PRN (21:17)
[2023-08-07] MEDS ORDERED: HYDROCODONE/APAP 10/325 TAB PO PRN (22:12)
[2023-08-08 07:02] LABS: Absolute Basophils 0.1 K/uL (0-0.5); Absolute Eosinophils 0.2 K/uL (0-0.5); Absolute Lymphocytes (CBC) 3.1 K/uL (0.7-4.9); Absolute Monocytes 1.4 K/uL (0.1-1.3); Absolute Neutrophil 7.7 K/uL (1.8-8.0); Basophils % 0.7 % (0-1.3); Hemoglobin 14.4 g/dL (13.6-17.9); Lymphocytes % 24.7 % (15.3-44.8); MCH 30.6 pg (27.0-35.0); MCHC 33.5 g/dL (32.0-36.0); MCV 91.5 fL (80-100); MPV 8.5 fL (7.6-11.3); Monocytes % 11.4 % (3.3-12.3); Neutrophils % 61.2 % (41.7-73.7); Platelets 174 thou/uL (152-406); Red Cell Distribution Width 14.5 % (12.1-15.2)
--- NOTE | 2023-08-08 07:24 | P.DS ---
Admission Date: 08/07/23 Discharge Date: 08/08/23 Disposition: ROUTINE DISCHARGE Discharge Condition: GOOD Reason for Admission: chest pain Brief History of Present Illness: 78 year old male presented with chest pain, shortness of breath that started night. He reports chest pain radiates to his back. reports associated shortness of breath. He denies dizziness, diaphoresis, edema. No reported of CAD, hypertension. He denies taking any medications. No reported use to tobacco. He reports occasional use of beer. Plan to admit for chest pain rule out HI. - Physical Exam General: Alert, In no apparent distress, Oriented x3 HEENT: Atraumatic Neck: Supple, 2+ carotid pulse no bruit Respiratory: Clear to auscultation bilaterally, Normal air movement Cardiovascular: Normal pulses, Regular rate/rhythm Capillary refill: <2 Seconds Gastrointestinal: Normal bowel sounds, Soft and benign Musculoskeletal: No clubbing, No swelling Neurological: Normal speech, Normal strength at 5/5 x4 extr Hospital Course: 78 year old male presented with chest pain, shortness of breath that started night. He reports chest pain radiates to his back. reports associated shortness of breath. He denies dizziness, diaphoresis, edema. Serial troponins negative, will repeat EKG prior to discharge. Patient needs to follow-up with cardiology for outpatient stress test additional cardiac testing. Assessment chest pain, serial troponins negative, follow-up with cardiology for outpatient stress test, Esophagitis, instructed patient to take PPI daily, follow-up with GI for EGD evaluation Pulmonary nodule-CT report given to patient, instructed patient to follow-up with primary care Continue home medicines as previously prescribed GOAL: Clear understanding of disease process INSTRUCTIONS: Physician Discharge Instructions: -Follow-up with PCP in 1 to 2 weeks -Please call Dr. Zuniga at [phone] if any questions regarding hospital stay -Please call nursing station at [phone] if any nursing or medication questions -Return to the emergency room if symptoms worsen Diet: ADA, low sodium Activity: Fall precautions Vital Signs/Physical Exam: Temp Pulse Resp BP Pulse Ox 98.5 F 78 16 102/58 L 92 08/08/23 04:00 08/08/23 06:00 08/08/23 04:00 08/08/23 06:00 08/08/23 04:00 Laboratory Data at Discharge: WBC 13.90 thou/uL (4.3-10.9) H 08/07/23 12:28 Hgb 15.7 g/dL (13.6-17.9) 08/07/23 12:28 Hct 47.2 % (39.6-49.0) 08/07/23 12:28 Plt Count 199 thou/uL (152-406) 08/07/23 12:28 PT 12.4 SECONDS (9.5-12.5) 08/07/23 12:55 INR 1.13 08/07/23 12:55 Sodium 134 mEq/L (136-145) L 08/07/23 12:55 Potassium 4.1 mEq/L (3.5-5.1) 08/07/23 12:55 BUN 19 mg/dL (7-18) H 08/07/23 12:55 Creatinine 1.10 mg/dL (0.70-1.30) 08/07/23 12:55 Glucose 129 mg/dL (74-106) H 08/07/23 12:55 Magnesium 2.2 mg/dL (1.6-2.4) 08/07/23 12:55 Total Bilirubin 0.9 mg/dL (0.2-1.0) 08/07/23 12:55 AST 16 U/L (15-37) 08/07/23 12:55 ALT 25 U/L (16-61) 08/07/23 12:55 Alkaline Phosphatase 84 U/L (45-117) 08/07/23 12:55 Lipase 40 U/L (13-75) 08/07/23 12:55 Home Medications: NK [No Home Meds] 08/07/23 Physician Discharge Instructions: 78 year old male presented with chest pain, shortness of breath that started night. He reports chest pain radiates to his back. reports associated shortness of breath. He denies dizziness, diaphoresis, edema. Serial troponins negative, will repeat EKG prior to discharge. Patient needs to follow-up with cardiology for outpatient stress test additional cardiac testing. Continue home medicines as previously prescribed GOAL: Clear understanding of disease process INSTRUCTIONS: Physician Discharge Instructions: -Follow-up with PCP in 1 to 2 weeks -Please call Dr. Zuniga at [phone] if any questions regarding hospital stay -Please call nursing station at [phone] if any nursing or medication questions -Return to the emergency room if symptoms worsen Diet: ADA, low sodium Activity: Fall precautions Diet: AHA Activity: Fall precautions Followup: Adelso Bello MD [ACTIVE - CAN ADMIT] - Clementina Lopes FNP [Primary Care Provider] - Time spent managing pt's care (in minutes): 55
[2023-08-08 07:27] LABS: Albumin 3.1 g/dL (3.4-5.0); Albumin/Globulin Ratio 0.8 (1.1-1.8); Anion Gap 7.8 mEq/L (5.0-15.0); Bilirubin Total 1.7 mg/dL (0.2-1.0); Globulin 3.8 g/dL (2.3-3.5); Magnesium 2.3 mg/dL (1.6-2.4); Potassium 3.8 mEq/L (3.5-5.1); Protein, Total 6.9 g/dL (6.4-8.2)
[2023-08-08 08:33] VITALS: BP 104/57; TEMP 98.1
[2023-08-08] MEDS: ENOXAPARIN 40 MG/0.4 ML SQ SCH (09:00)
[2023-08-08] MEDS: ASPIRIN 325 MG TAB PO SCH (09:50)
[2023-08-08 10:40] VITALS: O2SAT 94
--- NOTE | 2023-08-09 14:08 | EKG ---
Test Date: 2023-08-08 Test Time: 07:23:03 Beauty Sales Consultant: KYLEE MEASUREMENT RESULTS: Intervals: Rate: 0 [place]: QRSD: 0 QT: 0 QTc: 0 [place]: P: IA: QRS: 0 T: 0 INTERPRETIVE STATEMENTS: No QRS complexes found, no ECG analysis possible Compared to ECG 08/08/2023 07:21:50 Atrial fibrillation no longer present Incomplete right bundle-branch block no longer present Electronically Signed On 08-09-23 14:05:03 CDT by Adelso Bello
--- NOTE | 2023-08-09 14:08 | EKG ---
Test Date: 2023-08-08 Test Time: 07:21:50 [place]ole Agent: KYLEE MEASUREMENT RESULTS: Intervals: Rate: 93 [place]: QRSD: 110 QT: 368 QTc: 457 [place]: P: [place]: QRS: -17 T: 52 INTERPRETIVE STATEMENTS: Atrial fibrillation Incomplete right bundle branch block Abnormal ECG Compared to ECG 08/07/2023 15:28:55 Sinus rhythm no longer present Electronically Signed On 08-09-23 14:05:04 CDT by Adelso Bello
--- NOTE | 2023-08-09 14:09 | EKG ---
Test Date: 2023-08-07 Test Time: 21:14:04 Payroll Accounting Specialist: HB MEASUREMENT RESULTS: Intervals: Rate: 80 WI: 192 QRSD: 110 QT: 388 QTc: 447 [place]: P: 54 WI: 192 QRS: 7 T: 58 INTERPRETIVE STATEMENTS: Normal sinus rhythm Incomplete right bundle branch block Borderline ECG Compared to ECG 08/07/2023 15:28:55 No significant changes Electronically Signed On 08-09-23 14:05:18 CDT by Adelso Bello
--- NOTE | 2023-08-09 14:10 | EKG ---
Test Date: 2023-08-07 Test Time: 15:28:55 Photograph Inspector: KARRIE MEASUREMENT RESULTS: Intervals: Rate: 84 MI: 194 QRSD: 110 QT: 374 QTc: 441 [place]: P: 44 MI: 194 QRS: -4 T: 54 INTERPRETIVE STATEMENTS: Normal sinus rhythm Incomplete right bundle branch block Borderline ECG Compared to ECG 08/07/2023 12:32:01 Sinus tachycardia no longer present Left-axis deviation no longer present Electronically Signed On 08-09-23 14:05:53 CDT by Adelso Bello
--- NOTE | 2023-08-09 14:11 | EKG ---
Test Date: 2023-08-07 Test Time: 12:32:01 Low Emission Automobile Designer: KARRIE MEASUREMENT RESULTS: Intervals: Rate: 108 UT: 178 QRSD: 104 QT: 344 QTc: 460 [place]: P: 40 UT: 178 QRS: -34 T: 56 INTERPRETIVE STATEMENTS: Sinus tachycardia Left axis deviation Pulmonary disease pattern Incomplete right bundle branch block Abnormal ECG No previous ECG available for comparison Electronically Signed On 08-09-23 14:05:56 CDT by Adelso Bello
== END 2023-08-08 10:41 | disposition home or self-care (01) ==
LOC: ER 11:50 → ERHOLD 14:40 → 2ND 16:29
PROVIDERS: ADMIT Hospitalist; ATTEND Hospitalist
DX: R07.9 Chest pain, unspecified (principal); R06.02 Shortness of breath; K20.90 Esophagitis, unspecified without bleeding; K40.90 Unilateral inguinal hernia, without obstruction or gangrene, not specified as recurrent; K76.0 Fatty (change of) liver, not elsewhere classified; R91.1 Solitary pulmonary nodule; Z88.5 Allergy status to narcotic agent
CPT/HCPCS: 85025 ×2; 81001; 80048; 36415 ×2; 83735 ×2; 85610; 80061; 80076; 84484 ×5; 83690; 80053; 83880 ×2; 71275; 74175; 71045; 94760; 96372; 96374; 99284; Q9967; J1650; C9113 ×3; 93005; G0378